=== PATIENT | female | born 1980 | race Caucasian/White ===

== ENCOUNTER → 2021-11-13 | Outpatient (CLI) | payer OTHER ==
[~2021-11-13] MED LIST: ASPIRIN325 MG PO; IBUPROFEN PO; KEFLEX500 MG PO; NORCO 7.5-3251 EACH PO; VITAMIN C500 M4 PO; VITAMIN D21250 MCG PO
== END ==
LOC: KOH-I 10:07
DX: S82.831D Other fracture of upper and lower end of right fibula, subsequent encounter for closed fracture with routine healing (principal); X58.XXXD Exposure to other specified factors, subsequent encounter; Z96.7 Presence of other bone and tendon implants
CPT/HCPCS: 73610